=== PATIENT | female | born 1965 | race Asian ===

== ENCOUNTER 2017-01-15 18:52 | Emergency (ER) | payer SELFPAY ==
[~2017-01-15] VITALS: Ht 165.1 cm; Wt 54.4 kg
[2017-01-15 19:00] VITALS: BP 140/77
== END 2017-01-16 01:17 | disposition left against medical advice (07) ==
LOC: ER 18:56
DX: S69.92XA Unspecified injury of left wrist, hand and finger(s), initial encounter (principal); Z53.21 Procedure and treatment not carried out due to patient leaving prior to being seen by health care provider; W01.0XXA Fall on same level from slipping, tripping and stumbling without subsequent striking against object, initial encounter; Y93.89 Activity, other specified; Y99.8 Other external cause status; Y92.89 Other specified places as the place of occurrence of the external cause